=== PATIENT | male | born 1975 | race Two or more races ===

== ENCOUNTER 2018-12-21 19:20 | Emergency (ER) | payer MEDICAID ==
[~2018-12-21] VITALS: Ht 170.2 cm; Wt 81.0 kg
[~2018-12-21 19:20] MED LIST: LIDOcaine 1% 30ml preserv. free vial ONE
[2018-12-21] MEDS ORDERED: bacitracin 15gm ointment TP ONE (19:55)
[2018-12-21 21:41] VITALS: BP 138/82
== END 2018-12-21 21:44 | disposition home or self-care (01) ==
LOC: ER 19:21
DX: S61.211A Laceration without foreign body of left index finger without damage to nail, initial encounter (principal); W25.XXXA Contact with sharp glass, initial encounter; Y93.89 Activity, other specified; Y92.89 Other specified places as the place of occurrence of the external cause; Y99.8 Other external cause status
CPT/HCPCS: 12001; 73130; 99283; J2001